=== PATIENT | female | born 1955 | race Caucasian/White ===

== ENCOUNTER 2017-01-18 23:16 | Emergency (ER) | payer OTHER ==
--- NOTE | 2017-01-18 23:27 | PDOC ---
History of Present Illness - General Chief Complaint: Bite Stated Complaint: TICK BITE Time Seen by Provider: 01/18/17 23:19 - History of Present Illness Initial Comments: This 61-year-old woman with a history of borderline DM, GERD presents with a small lesion on the anterior proximal right thigh that she discovered this evening and she believes to be an embedded tick. Patient states that she was unable to remove the foreign body, although she tried. Patient states that she has walked her dogs in wooded areas recently. She had an embedded tick removed at urgent care last year. No history of Lyme disease or other tickborne illnesses. She has noted no rash anywhere else and has had no fever/chills/ myalgias. Past History - Past Medical History Allergies/Adverse Reactions: Allergies Allergy/AdvReac Type Severity Reaction Status Date / Time tree nut [Tree Nut] Allergy Unknown Verified 10/26/13 10:35 No Known Drug Allergies Allergy Verified 10/26/13 10:35 CRAB Allergy Unknown Uncoded 10/26/13 10:35 Home Medications: Ambulatory Orders Omeprazole [Prilosec (RX)] 40 mg PO DAILY 01/18/14 Metformin HCl 500 mg PO BID 01/18/17 Vitamin E (Dl,Tocopheryl Acet) [Vitamin E] 400 unit PO DAILY 01/18/17 Anemia: No (WAS ON IRON AFTER SPINAL SURGERY) Asthma: No Cancer: No Cardiac Disorders: No CVA: No COPD: No CHF: No Dementia: No Diabetes: Yes (BORDERLINE) GI Disorders: Yes (FEELS LIKE THROAT IS TIGHT,HAS HAD FOOD STUCK IN ESOPHAGUS 1988) Disorders: No HTN: No Hypercholesterolemia: Yes (COULDN'T TOLERATE LIPITOR) Liver Disease: No Seizures: No Thyroid Disease: No - Surgical History Abdominal Surgery: No Appendectomy: No Cardiac Surgery: No Cholecystectomy: No Lung Surgery: No Neurologic Surgery: No Orthopedic Surgery: Yes (Spinal Surgery FOR [id number] 2 RODS PLACED 2011) - Psycho/Social/Smoking Cessation Hx Anxiety: No Suicidal Ideation: No Smoking History: Never smoked Have you smoked in the past 12 months: No Hx Alcohol Use: Yes (NOT OFTEN) Drug/Substance Use Hx: No Substance Use Type: None Hx Substance Use Treatment: No Review of Systems - Review of Systems Able to Perform ROS?: Yes Comments:: 12 point review of systems is negative except for what is noted in the history of present illness *Physical Exam - Physical Exam Comments: Adult female, alert and oriented 3, in no acute distress Vital signs as noted Skin2 mm x 2 mm dark, firm particle embedded in skin midline proximal right thigh; minimal erythema surrounding area no edema or fluctuance No other rash/foreign body evident on skin exam Area around dark particle cleansed with Hibiclens/ethanol and draped. Using sterile technique, forceps used to gently remove particle from skin. There is no evidence of head/legs and this does not appear to be an insect. Particle appears to be hardened sebum consistent with comedone Bacitracin ointment applied to the area. Patient did not want Band-Aid or other skin covering applied. *DC/Admit/Observation/Transfer Diagnosis at time of Disposition: [place] - Discharge Dispostion Disposition: HOME Condition at time of disposition: Stable - Referrals Referrals: Cory Kan MD [Primary Care Provider] - 1 week - Patient Instructions Additional Instructions: bacitracin/ bandaid to area twice a day for the next 5 days Return if you develop swelling/pain in area or see a rash anywhere on your body
[2017-01-18 23:32] VITALS: BP 167/93; PULSE 76; TEMP 97.5; BMI 30.7
== END 2017-01-18 23:57 | disposition home or self-care (01) ==
LOC: FER 23:16
DX: L70.0 Acne vulgaris (principal); E78.00 Pure hypercholesterolemia, unspecified; K21.9 Gastro-esophageal reflux disease without esophagitis
CPT/HCPCS: 99281-25

== ENCOUNTER 2019-12-03 08:00 | Day surgery (SDC) | payer OTHER ==
[2019-11-25 15:42] VITALS: BMI 29.2
[2019-12-03] MEDS ORDERED: PROPOFOL 20 ML ONE ×2 (08:19)
[2019-12-03 09:03] VITALS: PULSE 69
[2019-12-03 09:32] VITALS: BP 118/65; TEMP 98
--- NOTE | 2019-12-07 14:54 | PATH ---
Surgical Pathology Report Patient Name: ANAYA BERNARD [facility]. Rec. #: [id number] /Age/Gender: 1955 (Age: 64) / F Account: [id number] Location: [facility] Taken: 12/03/2019 Received: 12/03/2019 Reported: 12/07/2019 Physicians: Ar Dyer M.D. Specimen(s) Received HOT BIOPSY POLYP RIGHT COLON Clinical History Screening Postoperative diagnosis: Colon polyp, internal hemorrhoids Final Diagnosis RIGHT COLON, POLYP, BIOPSY: HYPERPLASTIC POLYP. Electronically Signed Shira Duff M.D. Gross Description Received in formalin, labeled "polyp right colon" is a hernández, irregular portion of soft tissue measuring 0.2 cm. in greatest dimension. The specimen is submitted in toto in one cassette. 12/04/2019 [facility]/04/2019
== END 2019-12-03 09:45 | disposition home or self-care (01) ==
LOC: FASU-ENDO 08:00
PROVIDERS: ATTEND Internal Medicine Gastroenterology
PROC: 0DBK8ZX Excision of Ascending Colon, Via Natural or Artificial Opening Endoscopic, Diagnostic (ICD-10-PCS; principal; 2019-12-03 08:37)
DX: Z12.11 Encounter for screening for malignant neoplasm of colon (principal); D12.2 Benign neoplasm of ascending colon; K64.8 Other hemorrhoids
CPT/HCPCS: 82962; 88305-TC

== ENCOUNTER 2020-06-28 05:59 | Day surgery (SDC) | payer OTHER ==
[2020-06-23 15:13] VITALS: BMI 29.2
[2020-06-28] MEDS ORDERED: CYCLOPENTOLATE HCL 1% OPHTH SOLN 2 ML BOTTLE ONE (06:42)
[2020-06-28] MEDS ORDERED: OFLOXACIN 0.3% OPHTHALMIC SOLUTION 5 ML BOTTLE ONE (06:42)
[2020-06-28] MEDS ORDERED: TROPICAMIDE 1% OPHTH SOLN 15 ML BOTTLE ONE (06:43)
[2020-06-28] MEDS ORDERED: KETOROLAC TROMETHAMINE 0.5% EYE DROP 1 DROP DROPS ONE ×2 (06:43→07:03)
[2020-06-28] MEDS: PHENYLEPHRINE 2.5% OPHTH SOLN 15 ML BOTTLE OS SCH ×5 (07:05→07:25)
[2020-06-28] MEDS: TROPICAMIDE 1% OPHTH SOLN 15 ML BOTTLE OS SCH ×5 (07:05→07:25)
[2020-06-28] MEDS: KETOROLAC TROMETHAMINE 0.5% EYE DROP 1 DROP DROPS OS SCH ×5 (07:05→07:25)
[2020-06-28] MEDS: OFLOXACIN 0.3% OPHTHALMIC SOLUTION 5 ML BOTTLE OS SCH ×5 (07:05→07:25)
[2020-06-28] MEDS: CYCLOPENTOLATE HCL 1% OPHTH SOLN 2 ML BOTTLE OS SCH ×5 (07:05→07:25)
[2020-06-28] MEDS ORDERED: POVIDONE-IODINE 5% OPHTHALMIC PREP 30 ML SOLUTION ONE (07:30)
[2020-06-28] MEDS ORDERED: TETRACAINE 0.5% OPHTH SOLN 2 ML BOTTLE ONE (07:30)
[2020-06-28] MEDS ORDERED: NEO/POLYMYX B SULF/DEXAMETH OPHTHALMIC 5ML BOTTLE ONE (07:30)
[2020-06-28] MEDS ORDERED: BACITRACIN/POLYMYXIN OPH OINT 3.5 GM TUBE ONE ×2 (07:30→07:45)
[2020-06-28] MEDS ORDERED: EPI-SHUGARCAINE (EPINEPHRINE 0.025% & LIDOCAINE-PF 0.75%) 4ML ONE (07:30)
[2020-06-28] MEDS ORDERED: ACETYLCHOLINE 1:100 INTRA-OCUL 20 MG/2 ML KIT ONE (07:30)
[2020-06-28] MEDS ORDERED: EPINEPHrine/PF 1 MG/1 ML (1:1,000) AMPULE ONE (07:30)
[2020-06-28] MEDS ORDERED: BETAXOLOL HCL 0.25% OPHTHALMIC 10 ML DROPSBTL ONE (07:30)
[2020-06-28] MEDS ORDERED: MIDAZOLAM HCL 2 MG/2 ML SINGLE DOSE VIAL ONE (07:48)
[2020-06-28] MEDS ORDERED: ACETAMINOPHEN 325 MG TABLET (FP) PO PRN (09:23)
[2020-06-28 09:36] VITALS: PULSE 66; TEMP 98.4
[2020-06-28] MEDS ORDERED: ACETAMINOPHEN 325 MG TABLET (FP) ONE (09:37)
[2020-06-28 10:36] VITALS: BP 149/70
== END 2020-06-28 10:35 | disposition home or self-care (01) ==
LOC: FASU 05:59
PROVIDERS: ATTEND Ophthalmology
PROC: 08RK3JZ Replacement of Left Lens with Synthetic Substitute, Percutaneous Approach (ICD-10-PCS; principal; 2020-06-28 08:52)
DX: H26.9 Unspecified cataract (principal)
CPT/HCPCS: 82962

== ENCOUNTER 2020-07-12 06:30 | Day surgery (SDC) | payer OTHER ==
[2020-06-23 15:19] VITALS: BMI 29.2
[2020-07-12] MEDS ORDERED: PHENYLEPHRINE 2.5% OPHTH SOLN 15 ML BOTTLE OD SCH (07:00)
[2020-07-12] MEDS ORDERED: CYCLOPENTOLATE HCL 1% OPHTH SOLN 2 ML BOTTLE OD SCH (07:00)
[2020-07-12] MEDS ORDERED: PHENYLEPHRINE 2.5% OPHTH SOLN 15 ML BOTTLE OD ONE ×5 (07:00→07:20)
[2020-07-12] MEDS: OFLOXACIN 0.3% OPHTHALMIC SOLUTION 5 ML BOTTLE ONE ×5 (07:00→07:20)
[2020-07-12] MEDS ORDERED: KETOROLAC TROMETHAMINE 0.5% EYE DROP 1 DROP DROPS OD SCH (07:00)
[2020-07-12] MEDS: TROPICAMIDE 1% OPHTH SOLN 15 ML BOTTLE ONE ×5 (07:00→07:20)
[2020-07-12] MEDS: CYCLOPENTOLATE HCL 1% OPHTH SOLN 2 ML BOTTLE ONE ×5 (07:00→07:20)
[2020-07-12] MEDS ORDERED: OFLOXACIN 0.3% OPHTHALMIC SOLUTION 5 ML BOTTLE OD SCH (07:00)
[2020-07-12] MEDS ORDERED: TROPICAMIDE 1% OPHTH SOLN 15 ML BOTTLE OD SCH (07:00)
[2020-07-12] MEDS: KETOROLAC TROMETHAMINE 0.5% EYE DROP 1 DROP DROPS ONE ×5 (07:00→07:20)
[2020-07-12 07:04] VITALS: TEMP 97.8
[2020-07-12] MEDS ORDERED: BACITRACIN/POLYMYXIN OPH OINT 3.5 GM TUBE ONE (07:16)
[2020-07-12] MEDS ORDERED: POVIDONE-IODINE 5% OPHTHALMIC PREP 30 ML SOLUTION ONE (07:17)
[2020-07-12] MEDS ORDERED: BETAXOLOL HCL 0.25% OPHTHALMIC 10 ML DROPSBTL ONE (07:17)
[2020-07-12] MEDS ORDERED: TETRACAINE 0.5% OPHTH SOLN 2 ML BOTTLE ONE (07:17)
[2020-07-12] MEDS ORDERED: EPI-SHUGARCAINE (EPINEPHRINE 0.025% & LIDOCAINE-PF 0.75%) 4ML ONE (07:17)
[2020-07-12] MEDS ORDERED: ACETYLCHOLINE 1:100 INTRA-OCUL 20 MG/2 ML KIT ONE (07:18)
[2020-07-12] MEDS ORDERED: NEO/POLYMYX B SULF/DEXAMETH OPHTHALMIC 5ML BOTTLE ONE (07:18)
[2020-07-12] MEDS ORDERED: EPINEPHrine/PF 1 MG/1 ML (1:1,000) AMPULE ONE (07:19)
[2020-07-12] MEDS ORDERED: MIDAZOLAM HCL 2 MG/2 ML SINGLE DOSE VIAL ONE ×2 (07:33)
[2020-07-12] MEDS ORDERED: ONDANSETRON 4 MG/2 ML VIAL ONE ×2 (08:13→09:20)
[2020-07-12] MEDS ORDERED: ACETAMINOPHEN 325 MG TABLET (FP) PO PRN (08:59)
[2020-07-12 09:37] VITALS: BP 122/72; PULSE 64
== END 2020-07-12 09:45 | disposition home or self-care (01) ==
LOC: FASU 06:30
PROVIDERS: ATTEND Ophthalmology
PROC: 08RJ3JZ Replacement of Right Lens with Synthetic Substitute, Percutaneous Approach (ICD-10-PCS; principal; 2020-07-12 08:32)
DX: H26.9 Unspecified cataract (principal)
CPT/HCPCS: 82962